=== PATIENT | female | born 1960 | race Caucasian/White ===

== ENCOUNTER 2022-03-16 09:15 | Inpatient (IN) | payer OTHER ==
[~2022-03-16] VITALS: Ht 154.9 cm; Wt 123.5 kg
[2022-03-16] VITALS (20 sets, daily range): BP systolic 94–161; BP diastolic 53–103
[2022-03-16] MEDS ORDERED: HEPARIN SODIUM,PORCINE 5,000 UNITS/ML VIAL IVP ONE (09:30)
[2022-03-16 09:39] LABS: HEMATOCRIT 39.6 % (36-46); HEMOGLOBIN 12.9 g/dL (12.0-16.0); LYMPHOCYTES # (AUTO) 3.1 K/uL (1.0-4.8); LYMPHOCYTES % (AUTO) 41.5 % (22.0-44.0); MEAN CORPUSCULAR HEMOGLOBIN 27.3 pg (26.0-34.0); MEAN CORPUSCULAR HGB CONC 32.6 G/dL (31.0-37.0); MEAN CORPUSCULAR VOLUME 84 fL (80-100); MONOCYTES # (AUTO) 0.4 K/uL (0.1-1.0); MONOCYTES % (AUTO) 6.1 % (2.0-9.0); NEUTROPHILS # (AUTO) 3.6 K/uL (1.8-7.7); NEUTROPHILS % (AUTO) 49.4 % (40.0-70.0); PLATELET COUNT (AUTO) 280 K/uL (150-450); RED BLOOD CELL COUNT(AUTO) 4.73 MIL/uL (4.00-5.20); RED CELL DISTRIBUTION WIDTH 16.1 % (11.5-14.5)
[2022-03-16 09:48] LABS: ANION GAP 7 mmol/L (8-16); CALCIUM, TOTAL 9.5 mg/dL (8.8-10.5); CARBON DIOXIDE 29 mmol/L (22-29); CHLORIDE 100 mmol/L (98-107); CREATININE 0.83 mg/dL (0.60-1.30); GLUCOSE,RANDOM 156 mg/dL (70-110); POTASSIUM 3.8 mmol/L (3.5-5.1); SODIUM SERUM 136 mmol/L (136-145); UREA NITROGEN, BLOOD 18 mg/dL (7-18)
[2022-03-16 09:50] LABS: GLOMERULAR FILTR. RATE CALC > 60 mL/min (>60)
[2022-03-16] MEDS ORDERED: SODIUM BICARBONATE 50 MEQ/50 ML VIAL ONE (09:53)
[2022-03-16] MEDS ORDERED: LIDOCAINE/PF 1% 30 ML VIAL ONE (09:53)
[2022-03-16] MEDS ORDERED: HEPARIN SODIUM 1000 UNITS/NS 1,000 ML ONE (09:53)
[2022-03-16] MEDS ORDERED: VERAPAMIL HCL 2.5 MG/ML 2 ML VIAL ONE (09:53)
[2022-03-16] MEDS ORDERED: IOHEXOL 300 MG/ML 100 ML VIAL ONE ×3 (09:53→11:12)
[2022-03-16] MEDS ORDERED: NITROGLYCERIN 50 MG/D5% WATER 250 ML ONE (09:53)
[2022-03-16 09:54] LABS: ALANINE AMINOTRANSFERASE 18 U/L (12-78); ALBUMIN 3.6 g/dL (3.4-5.0); ALKALINE PHOSPHATASE 101 U/L (46-116); ASPARTATE AMINOTRANSFERASE 19 U/L (15-37); BILIRUBIN,TOTAL 0.3 mg/dL (0.1-1.0); CREATINE KINASE, TOTAL ONLY 62 U/L (26-192); TOTAL PROTEIN, SERUM 8.1 g/dL (6.4-8.2)
[2022-03-16 10:02] LABS: B-TYPE NATRIURETIC PEPTIDE 44 pg/mL (0-100)
[2022-03-16] MEDS ORDERED: NITROGLYCERIN 0.4 MG SUBLINGUAL TABLET #25 SL PRN ×2 (10:15→16:15)
[2022-03-16 10:19] LABS: INR 0.9 (0.9-1.1); PROTHROMBIN TIME 9.8 SEC (9.4-11.6)
[2022-03-16] MEDS ORDERED: IPRATROPIUM BROMIDE 0.5 MG/2.5 ML NEB SOLUTION NEB PRN (10:30)
[2022-03-16] MEDS ORDERED: DOCUSATE SODIUM 100 MG CAPSULE PO PRN (10:30)
[2022-03-16] MEDS ORDERED: BISACODYL 10 MG RECTAL RECTAL SUPPOSITORY PR PRN (10:30)
[2022-03-16] MEDS ORDERED: ALBUTEROL SULFATE 2.5 MG/0.5 ML NEB SOLUTION NEB PRN (10:30)
[2022-03-16] MEDS ORDERED: ONDANSETRON HCL 4 MG/2 ML VIAL IVP PRN (10:30)
[2022-03-16] MEDS ORDERED: 0.9% SODIUM CHLORIDE 10 ML SYRINGE IVP PRN (10:30)
[2022-03-16] MEDS ORDERED: SODIUM CHLORIDE 0.9% 500 ML IV ONE (10:45)
[2022-03-16] MEDS ORDERED: IOHEXOL 300 MG/ML 100 ML VIAL ICOR ONE ×4 (10:45→11:15)
[2022-03-16] MEDS ORDERED: NITROGLYCERIN/D5W 50 MG/250 ML IV BOTTLE IARTER ONE (10:45)
[2022-03-16] MEDS ORDERED: VERAPAMIL HCL 2.5 MG/ML 2 ML VIAL IARTER ONE (10:45)
[2022-03-16] MEDS ORDERED: LIDOCAINE 1% 30 ML/SOD BICARB 8.4% 4 ML SQ ONE (10:45)
[2022-03-16] MEDS ORDERED: HEPARIN SODIUM,PORCINE 1,000 UNITS/ML 10 ML VIAL IARTER ONE (10:45)
[2022-03-16] MEDS ORDERED: HEPARIN SODIUM 1000 UNITS/NS 1,000 ML IARTER ONE (10:45)
[2022-03-16] MEDS ORDERED: HEPARIN SODIUM,PORCINE 1,000 UNITS/ML 10 ML VIAL IVP ONE ×2 (10:45→12:00)
[2022-03-16 11:04] LABS: COVID AG,FIA SOURCE NASAL SWAB
[2022-03-16] MEDS ORDERED: TICAGRELOR 90 MG TABLET ONE (11:21)
[2022-03-16] MEDS ORDERED: TICAGRELOR 90 MG TABLET PO ONE (11:45)
[2022-03-16] MEDS ORDERED: MIDAZOLAM HCL 2 MG/2 ML VIAL IVP ONE (12:30)
[2022-03-16] MEDS ORDERED: FentaNYL CITRATE PF 100 MCG/2 ML VIAL IVP ONE (12:30)
[2022-03-16] MEDS: LEVOTHYROXINE SODIUM 150 MCG TABLET PO SCH ×2 (16:15→17:23)
[2022-03-16] MEDS ORDERED: INSULIN LISPRO 100 UNITS/ML SQ PRN (16:15)
[2022-03-16] MEDS ORDERED: GLUCAGON,HUMAN RECOMBINANT 1 MG VIAL IM PRN (16:15)
[2022-03-16] MEDS ORDERED: DEXTROSE 50%-WATER 25 GM/50 ML SYRINGE IVP PRN (16:30)
[2022-03-16] MEDS: ClonazePAM 1 MG TABLET PO PRN ×2 (16:32→20:56)
[2022-03-16] MEDS: ATORVASTATIN CALCIUM 40 MG TABLET PO SCH (16:41)
[2022-03-16] MEDS: ACETAMINOPHEN 325 MG TABLET PO PRN ×2 (16:42→20:56)
[2022-03-16] MEDS: INSULIN LISPRO 100 UNITS/ML SQ PRN ×2 (17:18→21:00)
[2022-03-16 17:51] LABS: GLUCOSE,POINT OF CARE 149 MG/DL (70-110)
[2022-03-16] MEDS: TICAGRELOR 90 MG TABLET PO SCH (20:55)
[2022-03-16] MEDS ORDERED: METOPROLOL TARTRATE 25 MG TABLET PO SCH (21:00)
[2022-03-16 21:06] LABS: GLUCOSE,POINT OF CARE 151 MG/DL (70-110)
[2022-03-17] VITALS: BP_SYST 138; BP_SYST 139; BP_DIAS 74; BP_DIAS 93
[2022-03-17 06:01] VITALS: BP 126/78
[2022-03-17 06:26] LABS: GLUCOSE,POINT OF CARE 137 MG/DL (70-110)
[2022-03-17 06:44] LABS: BASOPHILS % (AUTO) 0.7 % (0.0-2.0); EOSINOPHILS % (AUTO) 0.6 % (1.0-6.0); HEMOGLOBIN 12.1 g/dL (12.0-16.0); LYMPHOCYTES # (AUTO) 1.4 K/uL (1.0-4.8); LYMPHOCYTES % (AUTO) 18.7 % (22.0-44.0); MEAN CORPUSCULAR HEMOGLOBIN 27.4 pg (26.0-34.0); MEAN CORPUSCULAR HGB CONC 32.8 G/dL (31.0-37.0); MEAN CORPUSCULAR VOLUME 84 fL (80-100); MONOCYTES # (AUTO) 0.6 K/uL (0.1-1.0); MONOCYTES % (AUTO) 8.2 % (2.0-9.0); NEUTROPHILS # (AUTO) 5.4 K/uL (1.8-7.7); NEUTROPHILS % (AUTO) 71.8 % (40.0-70.0); PLATELET COUNT (AUTO) 265 K/uL (150-450); RED BLOOD CELL COUNT(AUTO) 4.42 MIL/uL (4.00-5.20); RED CELL DISTRIBUTION WIDTH 16.6 % (11.5-14.5)
[2022-03-17 06:59] LABS: ALANINE AMINOTRANSFERASE 24 U/L (12-78); ALBUMIN 3.2 g/dL (3.4-5.0); ALKALINE PHOSPHATASE 87 U/L (46-116); ANION GAP 7 mmol/L (8-16); ASPARTATE AMINOTRANSFERASE 177 U/L (15-37); BILIRUBIN,TOTAL 0.4 mg/dL (0.1-1.0); CALCIUM, TOTAL 9.3 mg/dL (8.8-10.5); CARBON DIOXIDE 30 mmol/L (22-29); CHLORIDE 100 mmol/L (98-107); CREATININE 0.78 mg/dL (0.60-1.30); GLUCOSE,RANDOM 162 mg/dL (70-110); POTASSIUM 3.8 mmol/L (3.5-5.1); SODIUM SERUM 137 mmol/L (136-145); TOTAL PROTEIN, SERUM 7.2 g/dL (6.4-8.2); UREA NITROGEN, BLOOD 12 mg/dL (7-18)
[2022-03-17 07:01] LABS: GLOMERULAR FILTR. RATE CALC > 60 mL/min (>60)
[2022-03-17] MEDS: LEVOTHYROXINE SODIUM 150 MCG TABLET PO SCH (07:27)
[2022-03-17 07:38] LABS: CHOL/HDL RATIO 5.3 (3.9-5.7); CHOLESTEROL 208 mg/dL (131-200); HDL CHOLESTEROL 39 mg/dL (40-60); LDL CHOL (CALC.) 131 mg/dL (0-130); THYROID STIMULATING HORMONE 1.97 uIU/mL (0.36-3.74); TRIGLYCERIDES 191 mg/dL (15-150)
[2022-03-17] MEDS: ATORVASTATIN CALCIUM 40 MG TABLET PO SCH (07:57)
[2022-03-17] MEDS: ASPIRIN 81 MG DR TABLET PO SCH (07:57)
[2022-03-17] MEDS: TICAGRELOR 90 MG TABLET PO SCH ×2 (07:57→20:48)
[2022-03-17] MEDS: LOSARTAN POTASSIUM 25 MG TABLET PO SCH (07:58)
[2022-03-17] MEDS: PANTOPRAZOLE SODIUM 40 MG DR TABLET PO SCH (07:58)
[2022-03-17 08:00] VITALS: BP 140/92
[2022-03-17] MEDS: METOPROLOL TARTRATE 25 MG TABLET PO SCH ×2 (09:40→20:48)
[2022-03-17] MEDS ORDERED: SODIUM CHLORIDE 0.9% 250 ML IV ONE (11:35)
[2022-03-17] MEDS: INSULIN LISPRO 100 UNITS/ML SQ PRN ×2 (11:44→21:15)
[2022-03-17 11:55] LABS: GLUCOSE,POINT OF CARE 178 MG/DL (70-110)
[2022-03-17 12:00] VITALS: BP 135/92
[2022-03-17] MEDS ORDERED: ALPRAZolam 0.5 MG TABLET PO SCH (12:30)
[2022-03-17 16:00] VITALS: BP 141/104
[2022-03-17] MEDS: ALPRAZolam 0.5 MG TABLET PO PRN (16:16)
[2022-03-17 17:41] LABS: GLUCOSE,POINT OF CARE 128 MG/DL (70-110)
[2022-03-17] MEDS: ACETAMINOPHEN 325 MG TABLET PO PRN (19:37)
[2022-03-17] MEDS: MORPHINE SULFATE 2 MG/ML SYRINGE IVP PRN (19:37)
[2022-03-17 20:00] VITALS: BP 118/70
[2022-03-17] MEDS: ClonazePAM 1 MG TABLET PO PRN (20:48)
[2022-03-18] VITALS (8 sets, daily range): BP systolic 100–152; BP diastolic 71–87
[2022-03-18 00:16] LABS: GLUCOSE,POINT OF CARE 176 MG/DL (70-110)
[2022-03-18] MEDS: LEVOTHYROXINE SODIUM 150 MCG TABLET PO SCH (06:25)
[2022-03-18] MEDS: INSULIN LISPRO 100 UNITS/ML SQ PRN ×2 (06:26→20:20)
[2022-03-18 06:29] LABS: ANION GAP 7 mmol/L (8-16); CALCIUM, TOTAL 9.3 mg/dL (8.8-10.5); CARBON DIOXIDE 28 mmol/L (22-29); CHLORIDE 101 mmol/L (98-107); GLUCOSE,RANDOM 157 mg/dL (70-110); POTASSIUM 4.1 mmol/L (3.5-5.1); SODIUM SERUM 136 mmol/L (136-145); UREA NITROGEN, BLOOD 12 mg/dL (7-18)
[2022-03-18 06:41] LABS: GLOMERULAR FILTR. RATE CALC > 60 mL/min (>60)
[2022-03-18 07:51] LABS: GLUCOSE,POINT OF CARE 154 MG/DL (70-110)
[2022-03-18] MEDS: TICAGRELOR 90 MG TABLET PO SCH ×2 (08:40→20:22)
[2022-03-18] MEDS: LOSARTAN POTASSIUM 25 MG TABLET PO SCH (08:40)
[2022-03-18] MEDS: PANTOPRAZOLE SODIUM 40 MG DR TABLET PO SCH (08:41)
[2022-03-18] MEDS: ATORVASTATIN CALCIUM 40 MG TABLET PO SCH (08:41)
[2022-03-18] MEDS: METOPROLOL TARTRATE 25 MG TABLET PO SCH ×2 (08:41→20:22)
[2022-03-18] MEDS: ASPIRIN 81 MG DR TABLET PO SCH (08:41)
[2022-03-18 12:11] LABS: GLUCOSE,POINT OF CARE 115 MG/DL (70-110)
[2022-03-18 20:06] LABS: GLUCOSE,POINT OF CARE 118 MG/DL (70-110)
[2022-03-18] MEDS: MORPHINE SULFATE 2 MG/ML SYRINGE IVP PRN (23:52)
[2022-03-18] MEDS: ClonazePAM 1 MG TABLET PO PRN (23:52)
[2022-03-19 02:01] LABS: GLUCOMETER DEV NAME(LOC) 5N.1C; GLUCOSE,POINT OF CARE 205 MG/DL (70-110)
[2022-03-19 04:18] VITALS: BP 123/74
[2022-03-19 06:22] LABS: BASOPHILS % (AUTO) 0.7 % (0.0-2.0); EOSINOPHILS % (AUTO) 1.9 % (1.0-6.0); HEMATOCRIT 35.4 % (36-46); HEMOGLOBIN 11.7 g/dL (12.0-16.0); LYMPHOCYTES # (AUTO) 1.5 K/uL (1.0-4.8); LYMPHOCYTES % (AUTO) 21.3 % (22.0-44.0); MEAN CORPUSCULAR HEMOGLOBIN 27.7 pg (26.0-34.0); MEAN CORPUSCULAR VOLUME 84 fL (80-100); MONOCYTES # (AUTO) 0.6 K/uL (0.1-1.0); MONOCYTES % (AUTO) 8.6 % (2.0-9.0); NEUTROPHILS # (AUTO) 4.6 K/uL (1.8-7.7); NEUTROPHILS % (AUTO) 67.5 % (40.0-70.0); PLATELET COUNT (AUTO) 253 K/uL (150-450); RED BLOOD CELL COUNT(AUTO) 4.22 MIL/uL (4.00-5.20); RED CELL DISTRIBUTION WIDTH 16.7 % (11.5-14.5)
[2022-03-19 06:33] LABS: ALANINE AMINOTRANSFERASE 20 U/L (12-78); ALKALINE PHOSPHATASE 83 U/L (46-116); ANION GAP 5 mmol/L (8-16); ASPARTATE AMINOTRANSFERASE 57 U/L (15-37); BILIRUBIN,TOTAL 0.5 mg/dL (0.1-1.0); CALCIUM, TOTAL 8.9 mg/dL (8.8-10.5); CARBON DIOXIDE 29 mmol/L (22-29); CHLORIDE 102 mmol/L (98-107); CREATININE 0.88 mg/dL (0.60-1.30); GLUCOSE,RANDOM 170 mg/dL (70-110); POTASSIUM 3.8 mmol/L (3.5-5.1); SODIUM SERUM 136 mmol/L (136-145); TOTAL PROTEIN, SERUM 7.1 g/dL (6.4-8.2); UREA NITROGEN, BLOOD 14 mg/dL (7-18)
[2022-03-19] MEDS: LEVOTHYROXINE SODIUM 150 MCG TABLET PO SCH (06:47)
[2022-03-19 06:52] LABS: GLOMERULAR FILTR. RATE CALC > 60 mL/min (>60)
[2022-03-19 07:45] VITALS: BP 123/80
[2022-03-19 07:51] LABS: GLUCOMETER DEV NAME(LOC) 5N.1C; GLUCOSE,POINT OF CARE 140 MG/DL (70-110)
[2022-03-19] MEDS: ASPIRIN 81 MG DR TABLET PO SCH (08:52)
[2022-03-19] MEDS: ATORVASTATIN CALCIUM 40 MG TABLET PO SCH (08:52)
[2022-03-19] MEDS: LOSARTAN POTASSIUM 25 MG TABLET PO SCH (08:52)
[2022-03-19] MEDS: METOPROLOL TARTRATE 25 MG TABLET PO SCH (08:52)
[2022-03-19] MEDS: PANTOPRAZOLE SODIUM 40 MG DR TABLET PO SCH (08:52)
[2022-03-19] MEDS: TICAGRELOR 90 MG TABLET PO SCH (08:52)
[2022-03-19] MEDS: ALPRAZolam 0.5 MG TABLET PO PRN (09:05)
[2022-03-19] MEDS ORDERED: ASPI-1444 PO (09:14)
[2022-03-19] MEDS ORDERED: LOSA25TA2 PO (09:14)
[2022-03-19] MEDS ORDERED: TICA90TA PO (09:14)
[2022-03-19] MEDS ORDERED: LEVO150 PO (09:14)
[2022-03-19] MEDS ORDERED: ATOR40TA71 PO (09:14)
[2022-03-19] MEDS ORDERED: METO25 PO (09:14)
[2022-03-19 14:25] VITALS: BP 108/79
[2022-03-19 15:45] VITALS: BP 122/80
== END 2022-03-19 15:45 | disposition home or self-care (01) | DRG 247 ==
LOC: EMS 09:16 → ICU 10:18 → 5S 03-18 18:40
PROVIDERS: ADMIT Internal Medicine; ATTEND Internal Medicine
PROC: 027034Z Dilation of Coronary Artery, One Artery with Drug-eluting Intraluminal Device, Percutaneous Approach (ICD-10-PCS; principal; 2022-03-16)
PROC: 4A023N7 Measurement of Cardiac Sampling and Pressure, Left Heart, Percutaneous Approach (ICD-10-PCS; 2022-03-16)
PROC: B2111ZZ Fluoroscopy of Multiple Coronary Arteries using Low Osmolar Contrast (ICD-10-PCS; 2022-03-16)
DX: I21.3 ST elevation (STEMI) myocardial infarction of unspecified site (principal); Z68.43 Body mass index [BMI] 50.0-59.9, adult; E11.9 Type 2 diabetes mellitus without complications; F41.9 Anxiety disorder, unspecified; E66.01 Morbid (severe) obesity due to excess calories; Z20.822 Contact with and (suspected) exposure to COVID-19; R00.1 Bradycardia, unspecified; E78.5 Hyperlipidemia, unspecified; I11.9 Hypertensive heart disease without heart failure; Z88.0 Allergy status to penicillin; Z90.710 Acquired absence of both cervix and uterus
CPT/HCPCS: 71045; 80048; 80053; 80061; 82550; 82962; 83036; 83880; 84443; 84484; 85025; 85610; 85730; 87081; 92920; 92928; 93005; 93306; 99291; G0378; J1644; J2250; J2270; J3010; J3490; J7040; J7050; Q9967; 36415-L1; 36415-TC; Z7610